=== PATIENT | male | born 1985 | race African-American/Black ===

== ENCOUNTER 2021-09-25 18:19 | Emergency (ER) | payer OTHER ==
[~2021-09-25] VITALS: Ht 180.3 cm; Wt 81.6 kg
[2021-09-25] MEDS ORDERED: KETOROLAC TROMETH 30 MG/ML 1ML VIAL IM ONE (18:45)
[2021-09-25 20:43] VITALS: BP 136/74
== END 2021-09-25 22:48 | disposition home or self-care (01) ==
LOC: ER 18:23
DX: S82.202A Unspecified fracture of shaft of left tibia, initial encounter for closed fracture (principal); V87.8XXA Person injured in other specified noncollision transport accidents involving motor vehicle (traffic), initial encounter; Y93.89 Activity, other specified; Y92.89 Other specified places as the place of occurrence of the external cause; Y99.8 Other external cause status
CPT/HCPCS: 29505; 73552; 73562; 73590; 96372; 99284; J1885